=== PATIENT | female | born 1955 | race Caucasian/White ===

== ENCOUNTER 2018-06-02 07:11 | Inpatient (IN) | payer BC ==
[~2018-06-02] VITALS: Ht 162.6 cm; Wt 73.8 kg
[2018-06-02] VITALS (23 sets, daily range): BP systolic 100–144; BP diastolic 55–98
[2018-06-02] MEDS ORDERED: MORPHINE SULFATE 4 MG/ML SYR/VIAL IV ONE ×2 (07:30→16:45)
[2018-06-02] MEDS ORDERED: PROMETHAZINE HCL 25 MG/ML 1ML IV ONE (07:30)
[2018-06-02] MEDS ORDERED: LIDOCAINE 2%HCL (LOCAL ANESTH.) INJ 20ML MDV ONE (07:33)
[2018-06-02] MEDS ORDERED: IODIXANOL 320MG/ML 100ML BTL IV ONE (07:34)
[2018-06-02] MEDS ORDERED: ANGIOMAX 250 MG VIAL IV ONE (07:52)
[2018-06-02] MEDS ORDERED: SODIUM CHL 0.9% 50 ML ONE ×2 (07:52→08:29)
[2018-06-02] MEDS ORDERED: ATROPINE SULF 1 MG/10ml SYR ONE (07:52)
[2018-06-02] MEDS ORDERED: MIDAZOLAM HCL 1MG/1ML-2 ML VIAL ONE (07:52)
[2018-06-02] MEDS ORDERED: DOPamine 1600MCG/ML D5W 0 ML IV ONE (07:52)
[2018-06-02] MEDS ORDERED: fentaNYL CITRATE 100 MCG/2 ML VL ONE (07:52)
[2018-06-02] MEDS ORDERED: EPINEPHrine HCL 1 MG/10 ML SYRG ONE (07:52)
[2018-06-02] MEDS ORDERED: ADENOSINE 6 MG/2 ML INJ IV ONE (07:57)
[2018-06-02 08:00] LABS: Basophils # (auto) 0.1 uL; Basophils % (auto) 0.6 % (0.0-2.0); Eosinophils # (auto) 0.1 uL; Eosinophils % (auto) 1.7 % (0.0-7.0); Hematocrit 43.8 % (36.0-46.0); Hemoglobin 14.3 g/dL (12.2-16.2); Lymphocytes # (auto) 2.6 uL; Lymphocytes % (auto) 31.5 % (10.0-50.0); Mean Corpuscular Hemoglobin 29.4 pg (28.0-32.0); Mean Corpuscular Hgb Conc. 32.7 g/dL (32.0-36.0); Mean Corpuscular Volume 89.9 fL (80.0-100.0); Monocytes # (auto) 0.7 uL; Monocytes % (auto) 9.1 % (0.0-12.0); Neutrophils # (auto) 4.6 uL; Neutrophils % (auto) 57.1 % (37.0-80.0); Nucleated Red Blood Cells % 0.1 %; Platelet Count (auto) 318 10^3/uL (140-450); Red Blood Cells 4.87 10^6/uL (4.0-5.20); Red Cell Distribution Width 13.5 % (11.8-14.3); White Blood Cell 8.1 10^3/uL (4.4-10.8)
[2018-06-02 08:16] LABS: Albumin 3.7 g/dL (3.4-5.0); Calcium 8.9 mg/dL (8.5-10.1); Potassium 4.2 mmol/L (3.5-5.1)
[2018-06-02 08:21] LABS: BUN/Creatinine Ratio 20.4; Bilirubin, Total 0.2 mg/dL (0.2-1.0); Total Protein 7.4 g/dL (6.4-8.2)
[2018-06-02] MEDS ORDERED: EPTIFIBATIDE INJ (2MG/ML) 10ML VIAL IV ONE (08:25)
[2018-06-02] MEDS ORDERED: AMIODARONE HCL (50 MG/ ML) 3 ML VIAL IV ONE (08:29)
[2018-06-02] MEDS ORDERED: TICAGRELOR 90 MG TAB ONE (08:45)
[2018-06-02] MEDS ORDERED: ONDANSETRON HCL 4 MG/2 ML VIAL IV PRN (09:15)
[2018-06-02] MEDS ORDERED: HYDROcodone-ACET 5/325MG TAB PO PRN (09:15)
[2018-06-02] MEDS ORDERED: NITROGLYCERIN 0.4 MG SL TAB SL PRN ×2 (09:15)
[2018-06-02] MEDS ORDERED: MORPHINE SULFATE 4 MG/ML SYR/VIAL IV PRN (09:15)
[2018-06-02] MEDS ORDERED: ACETAMINOPHEN 500 MG TAB PO PRN (09:15)
[2018-06-02] MEDS ORDERED: CITALOPRAM HYDROBR 20 MG TAB PO SCH (10:00)
[2018-06-02] MEDS ORDERED: VENLAFAXINE HCL 37.5MG TABLET PO SCH (10:00)
[2018-06-02] MEDS: ALPRAZolam 0.5 MG TAB PO PRN ×2 (10:25→22:10)
[2018-06-02] MEDS: TOPIRAMATE 25 MG TAB PO SCH (10:25)
[2018-06-02] MEDS: PANTOPRAZOLE 40 MG TAB PO SCH (10:26)
[2018-06-02] MEDS: METOPROLOL TARTRATE 25 MG TAB PO SCH ×2 (10:26→22:00)
[2018-06-02] MEDS: ESCITALOPRAM 10MG TAB PO SCH (10:26)
[2018-06-02] MEDS ORDERED: TOPI50TA53 PO (10:47)
[2018-06-02] MEDS ORDERED: ALPR0.5T PO (10:47)
[2018-06-02] MEDS ORDERED: VENL150C2 PO (10:48)
[2018-06-02] MEDS ORDERED: ESCI10TA PO (10:48)
[2018-06-02] MEDS ORDERED: OPTISON 3ml Vial for INJ IV ONE (11:14)
[2018-06-02] MEDS: TICAGRELOR 90 MG TAB PO SCH (22:10)
[2018-06-02] MEDS: ATORVASTATIN 20 MG TAB PO SCH (22:10)
[2018-06-03] VITALS (17 sets, daily range): BP systolic 86–116; BP diastolic 50–66
[2018-06-03 03:59] LABS: Albumin 3.1 g/dL (3.4-5.0); Potassium 3.6 mmol/L (3.5-5.1)
[2018-06-03 04:05] LABS: Bilirubin, Total 0.5 mg/dL (0.2-1.0); Total Protein 6.4 g/dL (6.4-8.2)
[2018-06-03 07:14] LABS: Basophils # (auto) 0 uL; Basophils % (auto) 0.3 % (0.0-2.0); Eosinophils # (auto) 0.1 uL; Eosinophils % (auto) 0.5 % (0.0-7.0); Hematocrit 41.3 % (36.0-46.0); Hemoglobin 13.9 g/dL (12.2-16.2); Lymphocytes # (auto) 1.8 uL; Lymphocytes % (auto) 15.4 % (10.0-50.0); Mean Corpuscular Hemoglobin 30.4 pg (28.0-32.0); Mean Corpuscular Hgb Conc. 33.5 g/dL (32.0-36.0); Mean Corpuscular Volume 90.8 fL (80.0-100.0); Monocytes # (auto) 1.3 uL; Monocytes % (auto) 10.7 % (0.0-12.0); Neutrophils # (auto) 8.6 uL; Neutrophils % (auto) 73.1 % (37.0-80.0); Platelet Count (auto) 295 10^3/uL (140-450); Red Blood Cells 4.55 10^6/uL (4.0-5.20); Red Cell Distribution Width 13.7 % (11.8-14.3); White Blood Cell 11.8 10^3/uL (4.4-10.8)
[2018-06-03] MEDS: METOPROLOL TARTRATE 25 MG TAB PO SCH (09:54)
[2018-06-03] MEDS: TICAGRELOR 90 MG TAB PO SCH ×2 (09:55→21:50)
[2018-06-03] MEDS: ESCITALOPRAM 10MG TAB PO SCH (09:55)
[2018-06-03] MEDS: ASPirin 81 mg TAB PO SCH (09:55)
[2018-06-03] MEDS: VENLAFAXINE HCL 37.5mg XR cap PO SCH (09:56)
[2018-06-03] MEDS: PANTOPRAZOLE 40 MG TAB PO SCH (09:56)
[2018-06-03] MEDS: TOPIRAMATE 25 MG TAB PO SCH (09:56)
[2018-06-03] MEDS ORDERED: IPRATROPIUM BROM 0.5 MG/2.5ML INH SOL NEB PRN (12:15)
[2018-06-03] MEDS ORDERED: ALBUTEROL SULF 2.5 MG/0.5ML(0.5%) NEB SOLN NEB PRN (12:15)
[2018-06-03 13:47] LABS: INR 0.99 (0.9-1.15); Partial Thromboplastin Time 27.9 sec (23.78-33.04); Prothrombin Time 10.6 sec (9.27-12.13)
[2018-06-03] MEDS: SODIUM CHLORIDE 0.9% 1,000 ML IV SCH (14:57)
[2018-06-03 16:40] LABS: Alcohol, Urine < 3.0 mg/dL (0-5); Amphetamine Screen, Urine NEGATIVE (NEGATIVE); Barbiturate Scree,Urine NEGATIVE (NEGATIVE); Benzodiazephine Screen, Urine POSITIVE (NEGATIVE); Cannabinoid Screen, Urine NEGATIVE (NEGATIVE); Cocaine Screen, Urine NEGATIVE (NEGATIVE); Opiate Scree,Urine NEGATIVE (NEGATIVE); Phencyclidine Screen, Urine NEGATIVE (NEGATIVE)
[2018-06-03 16:49] LABS: Urine Bacteria NONE SEEN /hpf (None Seen); Urine Blood Negative /uL (Negative); Urine Specific Gravity 1.007 (1.001-1.035); Urine WBC <1 /hpf (0 - 5)
[2018-06-03] MEDS: DOCUSATE SOD 100 MG CAP PO SCH (21:50)
[2018-06-03] MEDS: CARVEDILOL 3.125 MG TAB PO SCH (21:51)
[2018-06-03] MEDS: ATORVASTATIN 20 MG TAB PO SCH (21:51)
[2018-06-04 05:21] VITALS: BP 90/50
[2018-06-04 06:46] LABS: BUN/Creatinine Ratio 16.8; Calcium 7.8 mg/dL (8.5-10.1); Potassium 3.8 mmol/L (3.5-5.1)
[2018-06-04] MEDS: SODIUM CHLORIDE 0.9% 1,000 ML IV SCH (06:52)
[2018-06-04 08:53] VITALS: BP 85/43
[2018-06-04] MEDS: ASPirin 81 mg TAB PO SCH (09:43)
[2018-06-04] MEDS: TICAGRELOR 90 MG TAB PO SCH (09:43)
[2018-06-04] MEDS: ESCITALOPRAM 10MG TAB PO SCH (09:43)
[2018-06-04] MEDS: DOCUSATE SOD 100 MG CAP PO SCH (09:44)
[2018-06-04] MEDS: VENLAFAXINE HCL 37.5mg XR cap PO SCH (09:46)
[2018-06-04] MEDS: PANTOPRAZOLE 40 MG TAB PO SCH (09:47)
[2018-06-04] MEDS: TOPIRAMATE 25 MG TAB PO SCH (09:47)
[2018-06-04] MEDS: CARVEDILOL 3.125 MG TAB PO SCH ×2 (09:52→11:11)
[2018-06-04] MEDS ORDERED: POTASSIUM CHL 10 Meq TABLET PO SCH (10:00)
[2018-06-04] MEDS ORDERED: PANT40T PO (10:48)
[2018-06-04] MEDS ORDERED: CAR3125T PO (10:48)
[2018-06-04] MEDS ORDERED: ATOR20TA50 PO (10:48)
[2018-06-04] MEDS ORDERED: TICA90TA PO (10:48)
[2018-06-04] MEDS ORDERED: ASPI81CH43 PO (10:48)
[2018-06-04] MEDS: ALPRAZolam 0.5 MG TAB PO PRN (11:09)
[2018-06-04 12:54] VITALS: BP 106/46
[2018-06-04 13:00] VITALS: BP 106/46
== END 2018-06-04 16:34 | disposition home or self-care (01) | DRG 247 ==
LOC: EDBD 07:11 → ER 07:11 → CATH 07:12 → ICU WEST 07:13 → TELE-EAST 06-03 16:49
PROVIDERS: ADMIT Specialist; ATTEND Internal Medicine
PROC: 027034Z Dilation of Coronary Artery, One Artery with Drug-eluting Intraluminal Device, Percutaneous Approach (ICD-10-PCS; principal; 2018-06-02)
PROC: 02C03ZZ Extirpation of Matter from Coronary Artery, One Artery, Percutaneous Approach (ICD-10-PCS; 2018-06-02)
PROC: 4A023N7 Measurement of Cardiac Sampling and Pressure, Left Heart, Percutaneous Approach (ICD-10-PCS; 2018-06-02)
PROC: B2111ZZ Fluoroscopy of Multiple Coronary Arteries using Low Osmolar Contrast (ICD-10-PCS; 2018-06-02)
PROC: B2151ZZ Fluoroscopy of Left Heart using Low Osmolar Contrast (ICD-10-PCS; 2018-06-02)
PROC: 3E073PZ Introduction of Platelet Inhibitor into Coronary Artery, Percutaneous Approach (ICD-10-PCS; 2018-06-02)
PROC: B41F1ZZ Fluoroscopy of Right Lower Extremity Arteries using Low Osmolar Contrast (ICD-10-PCS; 2018-06-02)
DX: I21.09 ST elevation (STEMI) myocardial infarction involving other coronary artery of anterior wall (principal); J98.11 Atelectasis; F32.9 Major depressive disorder, single episode, unspecified; F41.9 Anxiety disorder, unspecified; F17.200 Nicotine dependence, unspecified, uncomplicated; I10 Essential (primary) hypertension; I25.10 Atherosclerotic heart disease of native coronary artery without angina pectoris; I25.82 Chronic total occlusion of coronary artery; I77.1 Stricture of artery; K44.9 Diaphragmatic hernia without obstruction or gangrene; Z79.82 Long term (current) use of aspirin; Z82.49 Family history of ischemic heart disease and other diseases of the circulatory system; Z88.1 Allergy status to other antibiotic agents; Z88.8 Allergy status to other drugs, medicaments and biological substances; Z79.899 Other long term (current) drug therapy
CPT/HCPCS: 36415; 71045; 80048; 80053; 80061; 80307; 81001; 83036; 84484; 85025; 85379; 85610; 85730; 86850; 86900; 86901; 87081; 93005; 93306; 94761; 96361; 96374; 99152; A6257; C1874; G0378; J0153; J2250; J2405; Q9956; Q9967

== ENCOUNTER → 2018-08-14 | Outpatient (CLI) | payer BC ==
[~2018-08-14] MED LIST: ALPR0.5T PO; ASPI81CH43 PO; ATOR20TA50 PO; CAR3125T PO; ESCI10TA PO; PANT40T PO; TICA90TA PO; TOPI50TA53 PO; VENL150C2 PO
== END | disposition home or self-care (01) ==
LOC: Rad HDHVI 14:53
PROVIDERS: ATTEND Internal Medicine Cardiovascular Disease
DX: I25.118 Atherosclerotic heart disease of native coronary artery with other forms of angina pectoris (principal); E78.2 Mixed hyperlipidemia; Z95.820 Peripheral vascular angioplasty status with implants and grafts
CPT/HCPCS: 93306

== ENCOUNTER → 2018-08-17 | Outpatient (CLI) | payer BC ==
[~2018-08-17] VITALS: Ht 162.6 cm; Wt 67.6 kg
[~2018-08-17] MED LIST changes: +ADENOSINE 90 MG/30 ML INJ IV ONE
== END | disposition home or self-care (01) ==
LOC: Rad HDHVI 14:19
PROVIDERS: ATTEND Internal Medicine Cardiovascular Disease
DX: I21.09 ST elevation (STEMI) myocardial infarction involving other coronary artery of anterior wall (principal); I34.0 Nonrheumatic mitral (valve) insufficiency; E78.00 Pure hypercholesterolemia, unspecified
CPT/HCPCS: 78452; 93017; 96374; A9500

== ENCOUNTER 2018-09-27 10:43 | Emergency (ER) | payer BC ==
[~2018-09-27] VITALS: Ht 162.6 cm; Wt 63.5 kg
[~2018-09-27 10:43] MED LIST changes: -ADENOSINE 90 MG/30 ML INJ IV ONE
[2018-09-27 11:31] LABS: Urine Bacteria MOD /hpf (None Seen); Urine Blood Negative /uL (Negative); Urine Specific Gravity 1.004 (1.001-1.035); Urine WBC 119 /hpf (0 - 5)
[2018-09-27] MEDS ORDERED: LORazepam 0.5 MG TAB PO ONE (11:45)
[2018-09-27 12:22] LABS: Basophils # (auto) 0 uL; Basophils % (auto) 0.8 % (0.0-2.0); Eosinophils # (auto) 0.2 uL; Eosinophils % (auto) 3.3 % (0.0-7.0); Hematocrit 39.7 % (36.0-46.0); Hemoglobin 13.2 g/dL (12.2-16.2); Lymphocytes # (auto) 1.9 uL; Lymphocytes % (auto) 30.1 % (10.0-50.0); Mean Corpuscular Hemoglobin 30.3 pg (28.0-32.0); Mean Corpuscular Hgb Conc. 33.2 g/dL (32.0-36.0); Mean Corpuscular Volume 91.1 fL (80.0-100.0); Monocytes # (auto) 0.7 uL; Monocytes % (auto) 10.9 % (0.0-12.0); Neutrophils # (auto) 3.5 uL; Neutrophils % (auto) 54.9 % (37.0-80.0); Platelet Count (auto) 301 10^3/uL (140-450); Red Blood Cells 4.36 10^6/uL (4.0-5.20); Red Cell Distribution Width 14.7 % (11.8-14.3); White Blood Cell 6.4 10^3/uL (4.4-10.8)
[2018-09-27 12:35] LABS: INR 0.93 (0.9-1.15); Partial Thromboplastin Time 27.5 sec (23.78-33.04)
[2018-09-27 12:36] LABS: Alanine Aminotransferase 50 U/L (13-56); Albumin 3.5 g/dL (3.4-5.0); Anion Gap 7 (5-15); Blood Urea Nitrogen 11 mg/dL (7-18); Calcium 8.7 mg/dL (8.5-10.1); Carbon Dioxide 25 mmol/L (21-32); Chloride 111 mmol/L (98-107); Glucose 103 mg/dL (74-106); Sodium 143 mmol/L (136-145)
[2018-09-27 12:41] LABS: Alkaline Phosphatase 85 U/L (45-117); Aspartate Aminotransferase 37 U/L (15-37); BUN/Creatinine Ratio 14.5; Bilirubin, Total 0.3 mg/dL (0.2-1.0); GFR African American 99 mL/min; GFR Non-African American 82 mL/min; Total Protein 7.2 g/dL (6.4-8.2)
[2018-09-27 14:13] VITALS: BP 124/77
== END 2018-09-27 14:14 | disposition home or self-care (01) ==
LOC: ER 10:51
DX: F41.9 Anxiety disorder, unspecified (principal); N39.0 Urinary tract infection, site not specified; F32.9 Major depressive disorder, single episode, unspecified; Z88.1 Allergy status to other antibiotic agents; Z98.51 Tubal ligation status; Z90.49 Acquired absence of other specified parts of digestive tract
CPT/HCPCS: 36415; 71045; 80053; 81001; 83880; 84443; 84484; 85025; 85610; 85730; 93005

== ENCOUNTER → 2019-05-07 | Outpatient (CLI) | payer BC | END | disposition home or self-care (01) | LOC: Rad HDHVI 15:56 | PROVIDERS: ATTEND Internal Medicine Cardiovascular Disease | DX: I25.118 Atherosclerotic heart disease of native coronary artery with other forms of angina pectoris (principal); I11.0 Hypertensive heart disease with heart failure; I50.23 Acute on chronic systolic (congestive) heart failure; Z95.820 Peripheral vascular angioplasty status with implants and grafts | CPT/HCPCS: 93306 ==

== ENCOUNTER → 2019-06-28 | Outpatient (CLI) | payer BC ==
[~2019-06-28] VITALS: Ht 162.6 cm; Wt 70.8 kg
== END | disposition home or self-care (01) ==
LOC: Rad HDHVI 08:20
PROVIDERS: ATTEND Internal Medicine Cardiovascular Disease
DX: I10 Essential (primary) hypertension (principal); R51 Headache; R00.0 Tachycardia, unspecified; R53.83 Other fatigue; I25.2 Old myocardial infarction; E78.00 Pure hypercholesterolemia, unspecified; Z82.49 Family history of ischemic heart disease and other diseases of the circulatory system; Z79.899 Other long term (current) drug therapy; Z79.82 Long term (current) use of aspirin
CPT/HCPCS: 78452; 93017; 96374; A9500

== ENCOUNTER → 2019-10-18 | Outpatient (CLI) | payer BC ==
[2019-10-18 08:24] LABS: Basophils # (auto) 0 10 ^3/uL (0-0.2); Basophils % (auto) 0.8 % (0.0-2.0); Eosinophils # (auto) 0.3 10 ^3/uL (0-0.8); Eosinophils % (auto) 5.6 % (0.0-7.0); Hematocrit 42.6 % (36.0-46.0); Hemoglobin 14.1 g/dL (12.2-16.2); Lymphocytes # (auto) 1.8 10 ^3/uL (0.4-5.4); Lymphocytes % (auto) 36.1 % (10.0-50.0); Mean Corpuscular Hgb Conc. 33.1 g/dL (32.0-36.0); Mean Corpuscular Volume 87.5 fL (80.0-100.0); Monocytes # (auto) 0.6 10 ^3/uL (0-1.3); Monocytes % (auto) 11.7 % (0.0-12.0); Neutrophils # (auto) 2.3 10 ^3/uL (1.6-8.6); Neutrophils % (auto) 45.8 % (37.0-80.0); Nucleated Red Blood Cells % 0.1 %; Platelet Count (auto) 335 10^3/uL (140-450); Red Blood Cells 4.86 10^6/uL (4.0-5.20); Red Cell Distribution Width 13.4 % (11.8-14.3); White Blood Cell 4.9 10^3/uL (4.4-10.8)
[2019-10-18 09:33] LABS: Magnesium 2.1 mg/dL (1.6-2.6)
[2019-10-18 09:40] LABS: Albumin 3.8 g/dL (3.4-5.0); BUN/Creatinine Ratio 19.4; Bilirubin, Total 0.4 mg/dL (0.2-1.0); Calcium 9.3 mg/dL (8.5-10.1); Phosphorus 3.6 mg/dL (2.5-4.90); Total Protein 7.2 g/dL (6.4-8.2)
== END | disposition home or self-care (01) ==
LOC: LAB 07:57
PROVIDERS: ATTEND Internal Medicine Nephrology
DX: I50.9 Heart failure, unspecified (principal); I25.10 Atherosclerotic heart disease of native coronary artery without angina pectoris; M85.80 Other specified disorders of bone density and structure, unspecified site
CPT/HCPCS: 36415; 80053; 80061; 82306; 83735; 84100; 84439; 84443; 85025

== ENCOUNTER 2019-11-11 08:36 | Emergency (ER) | payer BC ==
[~2019-11-11] VITALS: Ht 162.6 cm; Wt 63.5 kg
[2019-11-11 08:50] VITALS: BP 135/62
[2019-11-11] MEDS ORDERED: KETOROLAC TROMETH 60MG/2ML VIAL IM ONE (09:30)
[2019-11-11 09:48] LABS: Urine Bacteria NONE SEEN /hpf (None Seen); Urine Blood Negative /uL (Negative); Urine Mucus FEW (None Seen); Urine Specific Gravity 1.025 (1.001-1.035); Urine WBC 2 /hpf (0 - 5)
== END 2019-11-11 10:06 | disposition home or self-care (01) ==
LOC: ER 08:36
DX: N20.0 Calculus of kidney (principal); N28.1 Cyst of kidney, acquired; K44.9 Diaphragmatic hernia without obstruction or gangrene; Z88.1 Allergy status to other antibiotic agents; Z79.899 Other long term (current) drug therapy
CPT/HCPCS: 81001; 96372; 99283; J1885

== ENCOUNTER → 2021-02-01 | Outpatient (CLI) | payer BC, MEDICARE ==
[~2021-02-01] VITALS: Ht 162.6 cm; Wt 71.7 kg
== END | disposition home or self-care (01) ==
LOC: Rad HDHVI 13:31
PROVIDERS: ATTEND Internal Medicine Cardiovascular Disease
DX: I25.10 Atherosclerotic heart disease of native coronary artery without angina pectoris (principal); I10 Essential (primary) hypertension; E78.5 Hyperlipidemia, unspecified; I25.2 Old myocardial infarction; Z82.49 Family history of ischemic heart disease and other diseases of the circulatory system
CPT/HCPCS: 78452; 93017; 96374; A9500

== ENCOUNTER 2021-05-03 09:19 | Day surgery (SDC) | payer MEDICARE ==
[2021-04-30 10:02] LABS: Basophils # (auto) 0 10 ^3/uL (0-0.2); Basophils % (auto) 0.6 % (0.0-2.0); Eosinophils # (auto) 0.2 10 ^3/uL (0-0.8); Eosinophils % (auto) 3.9 % (0.0-7.0); Hemoglobin 13.5 g/dL (12.2-16.2); Lymphocytes # (auto) 1.7 10 ^3/uL (0.4-5.4); Lymphocytes % (auto) 38.4 % (10.0-50.0); Mean Corpuscular Hemoglobin 29.2 pg (28.0-32.0); Mean Corpuscular Hgb Conc. 32.9 g/dL (32.0-36.0); Mean Corpuscular Volume 88.8 fL (80.0-100.0); Monocytes # (auto) 0.5 10 ^3/uL (0-1.3); Monocytes % (auto) 12.1 % (0.0-12.0); Nucleated Red Blood Cells % 0.1 %; Red Blood Cells 4.61 10^6/uL (4.0-5.20); White Blood Cell 4.5 10^3/uL (4.4-10.8)
[2021-04-30 10:27] LABS: Albumin 3.7 g/dL (3.4-5.0); Calcium 9.1 mg/dL (8.5-10.1); Potassium 4.4 mmol/L (3.5-5.1)
[2021-04-30 10:30] LABS: BUN/Creatinine Ratio 20.7; Bilirubin, Total 0.3 mg/dL (0.2-1.0)
[~2021-05-03] VITALS: Ht 162.6 cm; Wt 71.7 kg
[~2021-05-03 09:19] MED LIST changes: -ALPR0.5T PO; +CLOP75TA28 PO; -ESCI10TA PO; -TOPI50TA53 PO; +TURM1TAB PO; -VENL150C2 PO; +VENL150C3 PO
[2021-05-03] MEDS ORDERED: LIDOCAINE VISCOUS 2% 15ML UD ONE (11:02)
[2021-05-03] MEDS ORDERED: diphenhdrAMINE HCL 50 MG/1 ML VL ONE (11:03)
[2021-05-03] MEDS: MIDAZOLAM HCL 5 MG/ML-1ML VIAL ONE ×5 (11:59→12:24)
[2021-05-03] MEDS: fentaNYL CITRATE 100 MCG/2 ML VL ONE ×5 (11:59→12:24)
[2021-05-03 13:10] VITALS: BP 126/73
== END 2021-05-03 13:15 | disposition home or self-care (01) ==
LOC: GI 09:19
PROVIDERS: ATTEND Internal Medicine Gastroenterology
DX: R10.30 Lower abdominal pain, unspecified (principal); K31.89 Other diseases of stomach and duodenum; K57.30 Diverticulosis of large intestine without perforation or abscess without bleeding; K63.89 Other specified diseases of intestine; Z98.890 Other specified postprocedural states; Z20.822 Contact with and (suspected) exposure to COVID-19; Z88.1 Allergy status to other antibiotic agents; Z88.8 Allergy status to other drugs, medicaments and biological substances
CPT/HCPCS: 36415; 43239; 45378; 80053; 85025; J1200; J2250; J3010; J7030; U0003; 99153; G0500

== ENCOUNTER → 2021-12-06 | Outpatient (CLI) | payer MEDICARE ==
[2021-12-06 16:27] LABS: Basophils # (auto) 0.1 10 ^3/uL (0-0.2); Basophils % (auto) 1.6 % (0.0-2.0); Eosinophils # (auto) 0.2 10 ^3/uL (0-0.8); Eosinophils % (auto) 3.6 % (0.0-7.0); Hematocrit 44.1 % (36.0-46.0); Hemoglobin 14.8 g/dL (12.2-16.2); Lymphocytes # (auto) 2.3 10 ^3/uL (0.4-5.4); Mean Corpuscular Hemoglobin 29.8 pg (28.0-32.0); Mean Corpuscular Hgb Conc. 33.7 g/dL (32.0-36.0); Mean Corpuscular Volume 88.4 fL (80.0-100.0); Monocytes # (auto) 0.8 10 ^3/uL (0-1.3); Monocytes % (auto) 12.6 % (0.0-12.0); Neutrophils # (auto) 2.9 10 ^3/uL (1.6-8.6); Neutrophils % (auto) 46.2 % (37.0-80.0); Red Blood Cells 4.98 10^6/uL (4.0-5.20); Red Cell Distribution Width 14.1 % (11.8-14.3); White Blood Cell 6.3 10^3/uL (4.4-10.8)
[2021-12-06 16:42] LABS: Albumin 3.7 g/dL (3.4-5.0); Calcium 9.5 mg/dL (8.5-10.1); Potassium 4.5 mmol/L (3.5-5.1)
[2021-12-06 16:46] LABS: BUN/Creatinine Ratio 17.2; Bilirubin, Total 0.4 mg/dL (0.2-1.0); Total Protein 7.6 g/dL (6.4-8.2)
== END | disposition home or self-care (01) ==
LOC: LAB 16:02
PROVIDERS: ATTEND Internal Medicine Nephrology
DX: I10 Essential (primary) hypertension (principal); Z79.899 Other long term (current) drug therapy
CPT/HCPCS: 36415; 80053; 83036; 85025

== ENCOUNTER → 2022-09-26 | Outpatient (CLI) | payer MEDICARE ==
[2022-09-26 10:28] LABS: Basophils # (auto) 0 10 ^3/uL (0-0.2); Basophils % (auto) 0.7 % (0.0-2.0); Eosinophils # (auto) 0.1 10 ^3/uL (0-0.8); Eosinophils % (auto) 3.3 % (0.0-7.0); Hemoglobin 15.2 g/dL (12.2-16.2); Lymphocytes # (auto) 1.7 10 ^3/uL (0.4-5.4); Lymphocytes % (auto) 39.1 % (10.0-50.0); Mean Corpuscular Hemoglobin 30.2 pg (28.0-32.0); Mean Corpuscular Hgb Conc. 33.7 g/dL (32.0-36.0); Mean Corpuscular Volume 89.4 fL (80.0-100.0); Monocytes # (auto) 0.5 10 ^3/uL (0-1.3); Monocytes % (auto) 11.8 % (0.0-12.0); Neutrophils % (auto) 45.1 % (37.0-80.0); Nucleated Red Blood Cells % 0.3 %; Red Blood Cells 5.04 10^6/uL (4.0-5.20); Red Cell Distribution Width 14.2 % (11.8-14.3); White Blood Cell 4.4 10^3/uL (4.4-10.8)
[2022-09-26 11:21] LABS: Albumin 3.7 g/dL (3.4-5.0); Calcium 8.8 mg/dL (8.5-10.1); Potassium 4.4 mmol/L (3.5-5.1)
[2022-09-26 11:28] LABS: BUN/Creatinine Ratio 15.7; Bilirubin, Total 0.4 mg/dL (0.2-1.0)
[2022-09-26 11:50] LABS: Micro Albumin 8.98 mg/L (0-30.0)
== END | disposition home or self-care (01) ==
LOC: LAB 10:11
PROVIDERS: ATTEND Nurse Practitioner Family
DX: R73.03 Prediabetes (principal); F41.9 Anxiety disorder, unspecified; I10 Essential (primary) hypertension
CPT/HCPCS: 36415; 80053; 80061; 82043; 82570; 83036; 84439; 84443; 85025

== ENCOUNTER → 2022-11-18 | Outpatient (CLI) | payer OTHER ==
[~2022-11-18] VITALS: Ht 162.6 cm; Wt 71.7 kg
== END | disposition home or self-care (01) ==
LOC: Rad HDHVI 08:10
PROVIDERS: ATTEND Internal Medicine Cardiovascular Disease
DX: I25.10 Atherosclerotic heart disease of native coronary artery without angina pectoris (principal); I25.2 Old myocardial infarction; R07.9 Chest pain, unspecified; Z82.49 Family history of ischemic heart disease and other diseases of the circulatory system
CPT/HCPCS: 78452; 93017; 96374; A9500

== ENCOUNTER → 2022-12-09 | Outpatient (CLI) | payer OTHER ==
[2022-12-09 14:48] LABS: Urine Bacteria FEW /hpf (None Seen); Urine Blood 2+ /uL (Negative); Urine Specific Gravity 1.016 (1.001-1.035); Urine WBC 1142 /hpf (0 - 5); Urine WBC Clumps PRESENT /hpf (None Seen)
== END | disposition home or self-care (01) ==
LOC: LAB 13:51
PROVIDERS: ATTEND Nurse Practitioner Family
DX: N39.0 Urinary tract infection, site not specified (principal)
CPT/HCPCS: 81001; 87086

== ENCOUNTER → 2023-09-12 | Outpatient (CLI) | payer OTHER ==
[2023-09-12 10:46] LABS: Basophils # (auto) 0 10 ^3/uL (0-0.2); Basophils % (auto) 0.7 % (0.0-2.0); Eosinophils # (auto) 0.1 10 ^3/uL (0-0.8); Eosinophils % (auto) 2.2 % (0.0-7.0); Hematocrit 43.4 % (36.0-46.0); Hemoglobin 14.4 g/dL (12.2-16.2); Lymphocytes # (auto) 1.8 10 ^3/uL (0.4-5.4); Lymphocytes % (auto) 36.3 % (10.0-50.0); Mean Corpuscular Hemoglobin 29.9 pg (28.0-32.0); Mean Corpuscular Hgb Conc. 33.1 g/dL (32.0-36.0); Mean Corpuscular Volume 90.3 fL (80.0-100.0); Monocytes # (auto) 0.6 10 ^3/uL (0-1.3); Monocytes % (auto) 11.2 % (0.0-12.0); Neutrophils # (auto) 2.5 10 ^3/uL (1.6-8.6); Neutrophils % (auto) 49.6 % (37.0-80.0); Nucleated Red Blood Cells % 0.1 %; Red Blood Cells 4.81 10^6/uL (4.0-5.20); Red Cell Distribution Width 13.7 % (11.8-14.3)
[2023-09-12 11:36] LABS: Alanine Aminotransferase 23 U/L (7-40); Albumin 4.6 g/dL (3.2-4.8); Alkaline Phosphatase 72 U/L (46-116); Anion Gap 7 (5-15); Aspartate Aminotransferase 23 U/L (13-40); BUN/Creatinine Ratio 12.6 (10.0-20.0); Bilirubin, Total 0.6 mg/dL (0.2-1.0); Blood Urea Nitrogen 12 mg/dL (9-23); Carbon Dioxide 29 mmol/L (20-30); Chloride 107 mmol/L (98-107); Cholesterol 213 mg/dL (< 200); Glucose 100 mg/dL (74-106); HDL Cholesterol 65 mg/dL (40-59); LDL Cholesterol 128 mg/dL (< 100); Potassium 4.7 mmol/L (3.5-5.1); Sodium 143 mmol/L (136-145); Total Protein 7.2 g/dL (5.7-8.2); Triglycerides 154 mg/dL (< 150)
== END | disposition home or self-care (01) ==
LOC: LAB 10:32
PROVIDERS: ATTEND Nurse Practitioner Family
DX: I50.32 Chronic diastolic (congestive) heart failure (principal); E78.5 Hyperlipidemia, unspecified; R73.03 Prediabetes
CPT/HCPCS: 36415; 80053; 80061; 82043; 83036; 84439; 84443; 85025

== ENCOUNTER → 2024-03-01 | Outpatient (CLI) | payer OTHER ==
[~2024-03-01] VITALS: Ht 162.6 cm; Wt 72.6 kg
[~2024-03-01] MED LIST changes: -CAR3125T PO; +CARV-214 PO
== END | disposition home or self-care (01) ==
LOC: Rad HDHVI 09:09
PROVIDERS: ATTEND Internal Medicine Cardiovascular Disease
DX: I13.0 Hypertensive heart and chronic kidney disease with heart failure and stage 1 through stage 4 chronic kidney disease, or unspecified chronic kidney disease (principal); N18.9 Chronic kidney disease, unspecified; I50.9 Heart failure, unspecified; I25.2 Old myocardial infarction; R73.03 Prediabetes; E78.5 Hyperlipidemia, unspecified; R00.0 Tachycardia, unspecified; I25.118 Atherosclerotic heart disease of native coronary artery with other forms of angina pectoris; R07.89 Other chest pain; Z82.49 Family history of ischemic heart disease and other diseases of the circulatory system
CPT/HCPCS: 78452; 93017; 96374; A9500

== ENCOUNTER 2024-06-06 12:35 | Inpatient (IN) | payer OTHER ==
[~2024-06-06] VITALS: Ht 162.6 cm; Wt 74.7 kg
[2024-06-06 13:21] LABS: Basophils # (auto) 0 10 ^3/uL (0-0.2); Basophils % (auto) 0.7 % (0.0-2.0); Eosinophils # (auto) 0.2 10 ^3/uL (0-0.8); Eosinophils % (auto) 3.5 % (0.0-7.0); Hematocrit 45.3 % (36.0-46.0); Hemoglobin 15.1 g/dL (12.2-16.2); Lymphocytes # (auto) 2.3 10 ^3/uL (0.4-5.4); Lymphocytes % (auto) 40.6 % (10.0-50.0); Mean Corpuscular Hemoglobin 29.6 pg (28.0-32.0); Mean Corpuscular Hgb Conc. 33.2 g/dL (32.0-36.0); Mean Corpuscular Volume 89.1 fL (80.0-100.0); Monocytes # (auto) 0.9 10 ^3/uL (0-1.3); Monocytes % (auto) 15.1 % (0.0-12.0); Neutrophils # (auto) 2.3 10 ^3/uL (1.6-8.6); Neutrophils % (auto) 40.1 % (37.0-80.0); Platelet Count (auto) 282 10^3/uL (140-450); Red Blood Cells 5.08 10^6/uL (4.0-5.20); Red Cell Distribution Width 14.9 % (11.8-14.3); White Blood Cell 5.6 10^3/uL (4.4-10.8)
[2024-06-06 13:40] LABS: Chloride 110 mmol/L (98-107); Potassium 4.1 mmol/L (3.5-5.1); Sodium 141 mmol/L (136-145)
[2024-06-06 13:41] LABS: Anion Gap 9 (5-15); Carbon Dioxide 22 mmol/L (20-31)
[2024-06-06 13:42] LABS: Calcium 9.7 mg/dL (8.7-10.4)
[2024-06-06 13:46] LABS: Glucose 115 mg/dL (74-106)
[2024-06-06 13:47] LABS: BUN/Creatinine Ratio 15.9 (10.0-20.0); Blood Urea Nitrogen 14 mg/dL (9-23)
--- NOTE | 2024-06-06 13:56 | DVH ---
EXAM: CT HEAD WITHOUT CONTRAST INDICATION: dizziness TECHNIQUE: CT of the head without intravenous contrast. Radiation Dose : 1. Head: CT Dose: CTDI volume is 55.7 mGy. Dose-length product is 986.32 mGy*cm The dose indicators for CT are the volume Computed Tomography (CT) Dose Index (CTDIvol) and the Dose Length Product (DLP), and are measured in units of mGy and mGy-cm, respectively. These indicators are not patient dose, but values generated from the CT scanner acquisition factors. The report includes radiation exposure data for exposures received during this examination. COMPARISON: None FINDINGS: There is no evidence of acute intracranial hemorrhage, extra-axial collection, mass effect, midline s hift, herniation or hydrocephalus. The ventricles, sulci and cisterns are age appropriate. The guerrero-white differentiation is intact. Patchy periventricular and subcortical white matter hypoattenuation is nonspecific but may be related to small vessel ischemic disease. The visualized paranasal sinuses and mastoid air cells are clear. The surrounding soft tissues and osseous structures are unremarkable. IMPRESSION: 1. No acute intracranial abnormality. 2. Chronic microvascular ischemic changes. Radiation optimization: All CT scans at this facility use at least one of these dose optimization jatin hniques: automated exposure control mA and/or kV adjustment per patient size (includes targeted exam s where dose is matched to clinical indication) or iterative reconstruction.
--- NOTE | 2024-06-06 13:57 | DVH ---
CHEST RADIOGRAPH Indication:CP Technique: Single frontal view of the chest was obtained COMPARISON: None FINDINGS: Lines and Tubes: None Lungs: Left basilar atelectasis/ scarring. Pleura: No effusion. No pneumothorax. Cardiomediastinal contours: Unremarkable Bones: Unremarkable Elevation of the left hemidiaphragm may reflect eventration. IMPRESSION: 1. No acute disease. 2. Elevation of the left hemidiaphragm may reflect eventration.
[2024-06-06 14:15] VITALS: PULSE 94; RESP 15; O2SAT 94
[2024-06-06] MEDS: MECLIZINE HCL 25 MG TAB PO ONE (14:33)
--- NOTE | 2024-06-06 14:59 | ED.PDOC ---
History of Present Illness HPI Comments This is a 68-year-old female who comes in with chief complaint of dizziness x2 days. The patient was also complaining of some nausea. She denies any recent trauma. There has been no fever or chills. The patient also states that she is having some palpitations. She went to the urgent care because she was having 1/10 chest pain and was sent to the emergency department's for evaluation. She denies any shortness a breath. Chief Complaint: Dizziness Time Seen by MD: 12:45 Primary Care Provider: ASIF Reviewed Notes: Nurses Notes, Medications, Allergies (Allergies listed above) Allergies: Coded Allergies: Amoxicillin (Verified Allergy, Unknown, 06/22/16) Azithromycin (Verified Allergy, Unknown, 06/22/16) Home Meds Active Scripts Ticagrelor Base (BRILINTA) 90 Mg Tab, 90 MG PO BID, #60 TAB Prov:MG NEELY MD 06/04/18 Atorvastatin Calcium (ATORVASTATIN CALCIUM) 20 Mg Tab, 40 MG PO HS, #90 TAB Prov:MG NEEYL MD 06/04/18 Carvedilol (COREG) 3.125 Mg Tab, 3.125 MG PO Q12HR, #120 TAB Prov:MG NEELY MD 06/04/18 Pantoprazole Sodium Sesquihydr (Pantoprazole Sodium) 40 Mg Tab, 40 MG PO DAILY, #30 TAB Prov:MG NEELY MD 06/04/18 Aspirin (Asa) 81 Mg Ch, 81 MG PO DAILY, #90 Prov:MG NEELY MD 06/04/18 Reported Medications Clopidogrel Bisulfate (Plavix) 75 Mg Tab, 75 MG PO, TAB 04/30/21 Curcuma [place]a (Turmeric) Extra (Turmeric) 500 Mg Tab, 500 MG PO, TAB 04/30/21 Venlafaxine Hydrochloride (Effexor Xr) 150 Mg Cap, 1 CAP PO DAILY, #30 CAP 1 Refill 06/02/18 Information Source: Patient Mode of Arrival: Ambulatory Severity: Moderate Timing: Days (Started two days ago) Duration: Since onset Prehospital treatment: None Associated signs and symptoms Associated palpitations with nausea and chest pain Past Medical History PAST MEDICAL HISTORY: Anxiety, Depression, High Lipids, HTN, DE Surgical History: BTL, Cholecystectomy, , PTCA WELL DRILLER History: No Pertinent WELL DRILLER History Family History Family History: Family hx of heart konrad Social History Smoker: Secondhand Alcohol: Occasionally Drugs: Denies Drug Use Lives In: Home Constitutional: denies: chills, diaphoresis, fatigue, fever, malaise, sweats, weakness, others EENTM: denies: blurred vision, double vision, ear bleeding, ear discharge, ear drainage, ear pain, ear ringing, eye pain, eye redness, hearing loss, mouth pain, mouth swelling, nasal discharge, nose bleeding, nose congestion, nose pain, photophobia, tearing, throat pain, throat swelling, voice changes, others Respiratory: denies: cough, hemoptysis, orthopnea, SOB at rest, shortness of breath, SOB with excertion, stridor, wheezing, others Cardiovascular: reports: chest pain, palpitations; denies: dizzy spells, diaphoresis, Dyspnea on exertion, edema, irregular heart beat, left arm pain, lightheadedness, PND, syncope, others Gastrointestinal: reports: nausea; denies: abdomen distended, abdominal pain, blood streaked bowels, constipated, diarrhea, dysphagia, difficulty swallowing, hematemesis, melena, poor appetite, poor fluid intake, rectal bleeding, rectal pain, vomiting, others Genitourinary: denies: abnormal vagina bleeding, burning, dyspareunia, dysuria, flank pain, frequency, hematuria, incontinence, pain, , vagina discharge, urgency, others Neurological: reports: dizziness, headache; denies: fainting, left sided numbness, left sided weakness, numbness, paresthesia, pre-existing deficit, right sided numbness, right sided weakness, seizure, speech problems, tingling, tremors, weakness, others Musculoskeletal: denies: back pain, gout, joint pain, joint swelling, muscle pain, muscle stiffness, neck pain, others Integumetry: denies: bruises, change in color, change in hair/nails, dryness, laceration, lesions, lumps, rash, wounds, others Allergic/Immunocompromised: denies: Difficulty Healing, Frequent Infections, Hives, Itching, others Hematologic/Lymphatic: denies: anemia, blood clots, easy bleeding, easy bruising, swollen glands, others Endocrine: denies: excessive hunger, excessive sweating, excessive thirst, excessive urination, flushing, intolerance to cold, intolerance to heat, unexplained weight gain, unexplained weight loss, others Psychiatric: denies: anxiety, bipolar disorder, depression, hopeless, panic disorder, schizophrenia, sleepless, suicidal, others Physical Exam General Appearance: Moderate Distress HEENT: Normal ENT Inspection, Pharynx Normal, TMs Normal Neck: Full Range of Motion, Non-Tender, Normal, Normal Inspection Respiratory: Chest Non-Tender, Lungs Clear, No Accessory Muscle Use, No Respiratory Distress, Normal Breath Sounds Cardiovascular: No Edema, No JVD, No Murmur, No Gallop, Tachycardia Breast Exam: Deferred Gastrointestinal: No Organomegaly, Non Tender, No Pulsatile Mass, Normal Bowel Sounds, Soft Genitalia: Deferred Pelvic: Deferred Rectal: Deferred Extremities: No calf tenderness, Normal capillary refill, Normal inspection, Normal range of motion, Non-tender, No pedal edema Musculoskeletal : Apperance: Normal Neurologic: Alert, 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 Was a procedure done?: No EKG EKG : Pulse Rate (adult): 102 [place]: Normal Cardiac Rhythm: ST Block: None Differential Dx Considerations may include: Generalized weakness, palpitations, DE, ACS X-Ray, Labs, Meds, VS Vital Signs Date Time Temp Pulse Resp B/P (MAP) Pulse Ox O2 Delivery O2 Flow Rate FiO2 06/06/24 16:31 84 18 106/45 (65) 94 06/06/24 14:59 102 06/06/24 14:15 98.3 94 15 106/49 (68) 94 98.3 06/06/24 14:15 94 15 94 Room Air* 0 21 06/06/24 12:52 98.3 89 18 108/56 (73) 93 06/06/24 12:42 83 Lab Test 06/06/24 15:46 06/06/24 14:45 06/06/24 13:50 06/06/24 12:49 Range/Units Troponin I High Sensitivity < 3 L < 3 L < 3 L </=34 ng/L Urine Color Light-yellow Yellow Urine Clarity Hazy H Clear Urine pH 7.0 5.0-9.0 Urine Specific [place] 1.023 1.001-1.035 Urine Protein Negative Negative Urine Ketones Negative Negative Urine Blood Negative Negative /uL Urine Nitrite Negative Negative Urine Bilirubin Negative Negative Urine Urobilinogen Normal Negative mg/dL Urine Leukocyte Esterase Negative Negative /uL Urine RBC <1 0 - 4 /hpf Urine WBC 1 0 - 5 /hpf Urine Squamous Epithelial Cells Few <5 /hpf Urine Amorphous Crystals Few None Seen /hpf Urine Bacteria Few H None Seen /hpf Urine Yeast (Budding) Moderate None Seen /hpf Urine Glucose Normal Normal mg/dL White Blood Count 5.6 4.4-10.8 10^3/uL Red Blood Count 5.08 4.0-5.20 10^6/uL Hemoglobin 15.1 12.2-16.2 g/dL Hematocrit 45.3 36.0-46.0 % Mean Corpuscular Volume 89.1 80.0-100.0 fL Mean Corpuscular Hemoglobin 29.6 28.0-32.0 pg Mean Corpuscular Hemoglobin Concent 33.2 32.0-36.0 g/dL Red Cell Distribution Width 14.9 H 11.8-14.3 % Platelet Count 282 140-450 10^3/uL Mean Platelet Volume 7.2 6.9-10.8 fL Neutrophils (%) (Auto) 40.1 37.0-80.0 % Lymphocytes (%) (Auto) 40.6 10.0-50.0 % Monocytes (%) (Auto) 15.1 H 0.0-12.0 % Eosinophils (%) (Auto) 3.5 0.0-7.0 % Basophils (%) (Auto) 0.7 0.0-2.0 % Neutrophils # (Auto) 2.3 1.6-8.6 10 ^3/uL Lymphocytes # (Auto) 2.3 0.4-5.4 10 ^3/uL Monocytes # (Auto) 0.9 0-1.3 10 ^3/uL Eosinophils # (Auto) 0.2 0-0.8 10 ^3/uL Basophils # (Auto) 0 0-0.2 10 ^3/uL Nucleated Red Blood Cells 0.0 % Sodium Level 141 136-145 mmol/L Potassium Level 4.1 3.5-5.1 mmol/L Chloride Level 110 H 98-107 mmol/L Carbon Dioxide Level 22 20-31 mmol/L Anion Gap 9 5-15 Blood Urea Nitrogen 14 9-23 mg/dL Creatinine 0.88 0.550-1.02 mg/dL Glomerular Filtration Rate Calc 72 >90 mL/min BUN/Creatinine Ratio 15.9 10.0-20.0 Serum Glucose 115 H 74-106 mg/dL Calcium Level 9.7 8.7-10.4 mg/dL Current Medications Medications (Trade) Dose Ordered Sig/Yelena Route Start Time Stop Time Status Last Admin Meclizine HCl (Antivert Tablet) 25 mg ONCE ONCE PO 06/06/24 14:00 06/06/24 14:01 DC 06/06/24 14:33 The patient was given meclizine 25 mg by mouth The patient's CBC and chemistry panel is within normal limits The troponin level x2 is negative At this time, the patient continues to be somewhat symptomatic. The CT scan of the head shows: IMPRESSION: 1. No acute intracranial abnormality. 2. Chronic microvascular ischemic changes. The chest x-ray shows no sign of any abnormalities At this time, the patient continues to have the dizziness in the pain The patient was being admitted The troponin level x3 is within normal limits Images Reviewed?: Images reviewed and evaluated by me Time of 1ST Reevaluation: 14:58 Reevaluation 1ST: Unchanged Patient Education/Counseling: Diagnosis, Treatment, Prognosis Family Education/Counseling: No Family Present Departure 1 Departure Time of Disposition: 16:50 Impression: Primary Impression: Autonomic dysfunction Additional Impression: Acute chest pain Disposition: ADMITTED INPATIENT Admit to: Tele Condition: Fair Critical Care Note Critical Care Time?: Yes (35 min-critical care time only) Stability Stability form required: Yes Unstable for transfer: Telemetry monitoring (Telemetry monitoring required), ED Physician Assesment (Clinical assesment) Heart Score Heart Score: Heart Score Response (Comments) Value History Moderate Suspicious 1 EKG Repolarization Disturb 1 Age >65 2 Risk Factors >3 or Hx ASHD 2 Troponin Normal limit 0 Total 6 ANGIE SUTTON MD Jun 06, 2024 14:59
[2024-06-06 15:21] LABS: Urine Amorphous Crystal FEW /hpf (None Seen); Urine Bacteria FEW /hpf (None Seen); Urine Blood Negative /uL (Negative); Urine Budding Yeast MODERATE /hpf (None Seen); Urine Clarity Hazy (Clear); Urine Color Light-Yellow (Yellow); Urine Protein, UAD Negative (Negative); Urine Specific Gravity 1.023 (1.001-1.035); Urine Urobilinogen Normal (Negative); Urine WBC 1 /hpf (0 - 5)
[2024-06-06 17:01] VITALS: PULSE 83; RESP 15; O2SAT 94
[2024-06-06] MEDS ORDERED: ONDANSETRON HCL 4 MG/2 ML VIAL IV PRN (18:30)
[2024-06-06] MEDS: SODIUM CHLORIDE 0.9% 1,000 ML IV SCH (18:30)
--- NOTE | 2024-06-06 18:39 | DVHHP2 ---
History of Present Illness Reason for Visit: Dizziness History of Present Illness This 68-year-old female presents in the ED with a chief complaint of dizziness. The patient reports progressive dizziness for the past few months. The patient reports dizziness he starts when getting up. The patient reports syncope and fall a few months ago. Orthostatic vital signs is positive with dizziness. The patient denies chest pain, shortness of breath, abdominal pain, or other acute symptoms. The patient reports recently seen by her Cardiology for routine follow-up. Past Medical History CAD with hx of mi Hypertension Depression Past Surgical History PTCA Bilateral tubal ligation Cholecystectomy Family History Reviewed, non-contributory to the management of this case. Past Social History The patient lives at home, denies smoking, alcohol or illicit drugs abuse. Review of Systems Constitutional: Yes: Malaise; No: Fever, Chills, Sweats, Weakness, Other Eyes: No: Pain, Vision change, Conjunctivae inflammation, Eyelid inflammation, Other, Redness ENT: No: Ear pain, Ear discharge, Nose pain, Nose discharge, Nose congestion, Mouth pain, Mouth swelling, Throat pain, Throat swelling, Other Respiratory: No: Cough, Dry, Shortness of breath, SOB with excertion, Wheezing, Hemoptysis, Pleuritic Pain, Sputum, Wheezing, Other Cardiovascular: No: Chest Pain, Palpitations, Orthopnea, Paroxysmal Noc. Dyspnea, Edema, Lt Headedness, Other Gastrointestinal: No: Nausea, Vomiting, Abdominal Pain, Diarrhea, Constipation, Melena, Hematochezia, Other Genitourinary: No Dysuria, No Frequency, No Incontinence, No Hematuria, No Retention, No Other Musculoskeletal: No: other, neck pain, shoulder pain, arm pain, back pain, hand pain, leg pain, foot pain Skin: No: Rash, Lesions, Jaundice, Bruising, Other Neurological: Other (Dizziness); No: Weakness, Numbness, Incoordination, Change in speech, Confusion, Seizures Allergies: Coded Allergies: Amoxicillin (Verified Allergy, Unknown, 06/22/16) Azithromycin (Verified Allergy, Unknown, 06/22/16) Medications Current Medications Medications Dose Ordered Sig/Yelena Route Start Time Stop Time Status Last Admin Dose Admin Aspirin 81 mg DAILY PO 06/07/24 10:00 Atorvastatin Calcium 40 mg HS PO 06/06/24 22:00 Clopidogrel Bisulfate 75 mg DAILY PO 06/07/24 10:00 Patient Own Medication 1 cap DAILY PO 06/07/24 10:00 UNV Exam Vital Signs Vital Signs Date Time Temp Pulse Resp B/P (MAP) Pulse Ox O2 Delivery O2 Flow Rate FiO2 06/06/24 18:00 98.1 94 22 114/59 (77) 94 98.1 06/06/24 17:01 Room Air* 0 21 General Appearance: Alert, Oriented X3, Cooperative, mild distress HEENT: Atraumatic, PERRLA, EOMI, Mucous membr. moist/pink Respiratory: Clear to auscultation, Normal air movement Cardiovascular: Regular rate, Normal S1, Normal S2, No murmurs Abdominal: Normal bowel sounds, Soft, No tenderness Extremities: No clubbing, No cyanosis, No edema, Normal pulses Skin: No rashes, No breakdown, No significant lesion Neuro: Normal gait, Sensation intact Psych/Mental Status: Mental status NL Labs/Xrays Labs Test 06/06/24 15:46 06/06/24 14:45 06/06/24 12:49 Range/Units Troponin I High Sensitivity < 3 L </=34 ng/L Urine Color Light-yellow Yellow Urine Clarity Hazy H Clear Urine pH 7.0 5.0-9.0 Urine Specific [place] 1.023 1.001-1.035 Urine Protein Negative Negative Urine Ketones Negative Negative Urine Blood Negative Negative /uL Urine Nitrite Negative Negative Urine Bilirubin Negative Negative Urine Urobilinogen Normal Negative mg/dL Urine Leukocyte Esterase Negative Negative /uL Urine RBC <1 0 - 4 /hpf Urine WBC 1 0 - 5 /hpf Urine Squamous Epithelial Cells Few <5 /hpf Urine Amorphous Crystals Few None Seen /hpf Urine Bacteria Few H None Seen /hpf Urine Yeast (Budding) Moderate None Seen /hpf Urine Glucose Normal Normal mg/dL White Blood Count 5.6 4.4-10.8 10^3/uL Red Blood Count 5.08 4.0-5.20 10^6/uL Hemoglobin 15.1 12.2-16.2 g/dL Hematocrit 45.3 36.0-46.0 % Mean Corpuscular Volume 89.1 80.0-100.0 fL Mean Corpuscular Hemoglobin 29.6 28.0-32.0 pg Mean Corpuscular Hemoglobin Concent 33.2 32.0-36.0 g/dL Red Cell Distribution Width 14.9 H 11.8-14.3 % Platelet Count 282 140-450 10^3/uL Mean Platelet Volume 7.2 6.9-10.8 fL Neutrophils (%) (Auto) 40.1 37.0-80.0 % Lymphocytes (%) (Auto) 40.6 10.0-50.0 % Monocytes (%) (Auto) 15.1 H 0.0-12.0 % Eosinophils (%) (Auto) 3.5 0.0-7.0 % Basophils (%) (Auto) 0.7 0.0-2.0 % Neutrophils # (Auto) 2.3 1.6-8.6 10 ^3/uL Lymphocytes # (Auto) 2.3 0.4-5.4 10 ^3/uL Monocytes # (Auto) 0.9 0-1.3 10 ^3/uL Eosinophils # (Auto) 0.2 0-0.8 10 ^3/uL Basophils # (Auto) 0 0-0.2 10 ^3/uL Nucleated Red Blood Cells 0.0 % Sodium Level 141 136-145 mmol/L Potassium Level 4.1 3.5-5.1 mmol/L Chloride Level 110 H 98-107 mmol/L Carbon Dioxide Level 22 20-31 mmol/L Anion Gap 9 5-15 Blood Urea Nitrogen 14 9-23 mg/dL Creatinine 0.88 0.550-1.02 mg/dL Glomerular Filtration Rate Calc 72 >90 mL/min BUN/Creatinine Ratio 15.9 10.0-20.0 Serum Glucose 115 H 74-106 mg/dL Calcium Level 9.7 8.7-10.4 mg/dL PROCEDURE(s): HWOCT - HEAD WITHOUT CONTRAST REASON: dizziness ORDER NUMBER(s): [id number], ACCESSION NUMBER(s): [id number] EXAM: CT HEAD WITHOUT CONTRAST INDICATION: dizziness TECHNIQUE: CT of the head without intravenous contrast. Radiation Dose : 1. Head: CT Dose: CTDI volume is 55.7 mGy. Dose-length product is 986.32 mGy*cm The dose indicators for CT are the volume Computed Tomography (CT) Dose Index (CTDIvol) and the Dose Length Product (DLP), and are measured in units of mGy and mGy-cm, respectively. These indicators are not patient dose, but values generated from the CT scanner acquisition factors. The report includes radiation exposure data for exposures received during this examination. COMPARISON: None FINDINGS: There is no evidence of acute intracranial hemorrhage, extra-axial collection, mass effect, midline shift, herniation or hydrocephalus. The ventricles, sulci and cisterns are age appropriate. The guerrero-white differentiation is intact. Patchy periventricular and subcortical white matter hypoattenuation is nonspecific but may be related to small vessel ischemic disease. The visualized paranasal sinuses and mastoid air cells are clear. The surrounding soft tissues and osseous structures are unremarkable. IMPRESSION: 1. No acute intracranial abnormality. 2. Chronic microvascular ischemic changes. Assessment/Plan Assessment/Plan # Dizziness and giddiness # orthostatic hypotension # rule out carotid stenosis # hx of Falls Admit to telemetry unit Orthostatic vital sign positive for orthostatic hypotension Carotid US pending High fall risk precautions # CAD with hx of [place] plavix, statins, aspirin # hypertension Metoprolol # depression Effexor, Topamax DVT prophylaxis Medical plan discussed with patient, family at the bedside Plan discussed with: Patient My Orders Orders - ESSENCE RACHEL Procedure Category Date Status Time Carotid Duplx W Color US 06/06/24 Logged DOP 18:20 Orthostatic Vital ORDERS 06/06/24 Transmitted Signs 18:20 Aspirin Tablet PHA 06/07/24 In Process 10:00 Atorvastatin (Lipitor) PHA 06/06/24 In Process 22:00 Clopidogrel Bisulfate PHA 06/07/24 In Process (Plavix) 10:00 (Nf) Venlafaxine PHA 06/07/24 Logged Hydrochloride (Effexor 10:00 Date of Service: Jun 06, 2024 Billing Provider: ESSENCE ARCHEL Common Visit Codes: [id number] INP/OBS CARE (HIGH) ESSENCE RACHEL Jun 06, 2024 18:39
[2024-06-06 19:20] VITALS: PULSE 97; RESP 13; O2SAT 93
--- NOTE | 2024-06-06 19:22 | DVH ---
Carotid Duplex Date: 06/06/2024 06:34 PM Clinical History: Dizziness Comparison: None Technique: Duplex Doppler evaluation of the extracranial carotid and vertebral arteries including color Doppler and spectral/pulsed waveform analysis was performed. Findings: RIGHT SIDE: The peak systolic velocities are 78 cm/s in the distal CCA and 90 cm/s in the proximal ICA.The ICA/CC A ratio is less than 2. The external carotid artery is patent with peak systolic velocity of 100 cm/s proximally. There is appropriate antegrade flow in the right vertebral artery. LEFT SIDE: The peak systolic velocities are 87 cm/s in the distal CCA and 125 cm/s in the mid ICA. The ICA/CCA ratio is less than 2. The external carotid artery is patent with peak systolic velocity of 83 cm/s proximally. There is appropriate antegrade flow in the left vertebral artery. IMPRESSION: Elevated velocity within the left mid ICA appears to be from tortuous vasculature with no significant plaque formation noted on the grayscale image (image 14). No hemodynamically significant stenosis of the right carotid arterial system based on peak systolic v elocities.
[2024-06-06 20:59] VITALS: BP 94/58; PULSE 95; RESP 20; TEMP 98.1; O2SAT 90
[2024-06-06 21:00] VITALS: RESP 16; O2SAT 95
[2024-06-06] MEDS ORDERED: ROSU10TA64 PO (21:09)
[2024-06-06] MEDS ORDERED: ALPR0.5T8 PO (21:09)
[2024-06-06] MEDS ORDERED: METO25TA93 PO (21:09)
[2024-06-06] MEDS ORDERED: TOPI50TA53 PO (21:09)
[2024-06-06] MEDS: TEMAZEPAM 15 MG CAP PO ONE (23:09)
[2024-06-06] MEDS: ATORVASTATIN 20 MG TAB PO SCH (23:10)
[2024-06-07 01:26] VITALS: BP 100/54; PULSE 97; RESP 19; TEMP 98.2; O2SAT 90
[2024-06-07 05:00] VITALS: BP 95/48; PULSE 87; RESP 17; TEMP 97.9; O2SAT 92
[2024-06-07 05:46] LABS: Basophils # (auto) 0 10 ^3/uL (0-0.2); Basophils % (auto) 0.6 % (0.0-2.0); Eosinophils # (auto) 0.2 10 ^3/uL (0-0.8); Eosinophils % (auto) 4.4 % (0.0-7.0); Lymphocytes # (auto) 2.4 10 ^3/uL (0.4-5.4); Lymphocytes % (auto) 44.8 % (10.0-50.0); Mean Corpuscular Hemoglobin 29.6 pg (28.0-32.0); Mean Corpuscular Hgb Conc. 33.2 g/dL (32.0-36.0); Monocytes # (auto) 0.7 10 ^3/uL (0-1.3); Monocytes % (auto) 13.8 % (0.0-12.0); Neutrophils # (auto) 1.9 10 ^3/uL (1.6-8.6); Neutrophils % (auto) 36.4 % (37.0-80.0); Nucleated Red Blood Cells % 0.1 %; Platelet Count (auto) 244 10^3/uL (140-450); Red Blood Cells 4.72 10^6/uL (4.0-5.20); Red Cell Distribution Width 15.1 % (11.8-14.3); White Blood Cell 5.3 10^3/uL (4.4-10.8)
[2024-06-07 06:07] LABS: Alanine Aminotransferase 27 U/L (7-40); Albumin 3.9 g/dL (3.2-4.8); Alkaline Phosphatase 78 U/L (46-116); Anion Gap 7 (5-15); Aspartate Aminotransferase 17 U/L (13-40); BUN/Creatinine Ratio 11.9 (10.0-20.0); Blood Urea Nitrogen 12 mg/dL (9-23); Calcium 9.5 mg/dL (8.7-10.4); Carbon Dioxide 24 mmol/L (20-31); Chloride 113 mmol/L (98-107); Glucose 104 mg/dL (74-106); Potassium 4.7 mmol/L (3.5-5.1); Sodium 144 mmol/L (136-145)
[2024-06-07 06:08] LABS: Bilirubin, Total 0.3 mg/dL (0.2-1.0); Total Protein 6.2 g/dL (5.7-8.2)
--- NOTE | 2024-06-07 06:37 | ECG ---
[facility] Test Date: 2024-06-06 Test Time: 12:42:05 Pat Name: CHERELLE HILL Department: ER Room: 0214T B Gender: F Converting Technician: PRASHANT : 1955 Requested By: EMERGENCY EMERGENCY Order Number: [id number] Reading MD: Rashid Tanner Measurements Intervals [place] Rate: 83 P: 29 ME: 162 QRS: 30 QRSD: 85 T: 15 QT: 432 QTc: 508 Interpretive Statements Sinus rhythm Low voltage, precordial leads Prolonged QT interval Electronically Signed On 06-11-2024 17:01:02 PST by Rashid Tanner Please click the below link to view image of tracing.
[2024-06-07 08:00] VITALS: PULSE 86
[2024-06-07 09:08] VITALS: BP 115/47; PULSE 84; RESP 16; TEMP 98.8; O2SAT 94
[2024-06-07] MEDS: METOPROLOL SUCCINATE XL 50 MG TAB PO SCH (10:00)
[2024-06-07] MEDS: VENLAFAXINE HCL 37.5mg XR cap PO SCH (10:58)
[2024-06-07] MEDS: CLOPIDOGREL BISULFATE 75 MG TAB PO SCH (11:00)
[2024-06-07] MEDS: ENOXAPARIN SOD 30 MG/0.3 ML SYRINGE SC SCH (11:01)
[2024-06-07] MEDS: ASPirin 81 mg TAB PO SCH (11:01)
[2024-06-07] MEDS: TOPIRAMATE 25 MG TAB PO SCH (11:01)
[2024-06-07] MEDS: MECLIZINE HCL 25 MG TAB PO PRN (12:21)
[2024-06-07 12:51] VITALS: BP 102/51; PULSE 90; RESP 16; TEMP 98.9; O2SAT 91
[2024-06-07] MEDS ORDERED: MECL1TAB42 PO (14:02)
[2024-06-07] MEDS ORDERED: CYAN100069 PO (14:02)
--- NOTE | 2024-06-07 14:07 | DVHDS2 ---
Discharge Summary Date of Admission Jun 06, 2024 at 18:24 Date of Discharge: Jun 07, 2024 Labs/Diagnostic Data: Laboratory Results Test 06/07/24 05:21 06/06/24 15:46 06/06/24 14:45 White Blood Count 5.3 10^3/uL (4.4-10.8) Red Blood Count 4.72 10^6/uL (4.0-5.20) Hemoglobin 14.0 g/dL (12.2-16.2) Hematocrit 42.0 % (36.0-46.0) Mean Corpuscular Volume 89.0 fL (80.0-100.0) Mean Corpuscular Hemoglobin 29.6 pg (28.0-32.0) Mean Corpuscular Hemoglobin Concent 33.2 g/dL (32.0-36.0) Red Cell Distribution Width 15.1 % (11.8-14.3) Platelet Count 244 10^3/uL (140-450) Mean Platelet Volume 7.1 fL (6.9-10.8) Neutrophils (%) (Auto) 36.4 % (37.0-80.0) Lymphocytes (%) (Auto) 44.8 % (10.0-50.0) Monocytes (%) (Auto) 13.8 % (0.0-12.0) Eosinophils (%) (Auto) 4.4 % (0.0-7.0) Basophils (%) (Auto) 0.6 % (0.0-2.0) Neutrophils # (Auto) 1.9 10 ^3/uL (1.6-8.6) Lymphocytes # (Auto) 2.4 10 ^3/uL (0.4-5.4) Monocytes # (Auto) 0.7 10 ^3/uL (0-1.3) Eosinophils # (Auto) 0.2 10 ^3/uL (0-0.8) Basophils # (Auto) 0 10 ^3/uL (0-0.2) Nucleated Red Blood Cells 0.1 % Sodium Level 144 mmol/L (136-145) Potassium Level 4.7 mmol/L (3.5-5.1) Chloride Level 113 mmol/L (98-107) Carbon Dioxide Level 24 mmol/L (20-31) Anion Gap 7 (5-15) Blood Urea Nitrogen 12 mg/dL (9-23) Creatinine 1.01 mg/dL (0.550-1.02) Glomerular Filtration Rate Calc 61 mL/min (>90) BUN/Creatinine Ratio 11.9 (10.0-20.0) Serum Glucose 104 mg/dL (74-106) Hemoglobin A1c 6.2 % A1C (<5.7) Calcium Level 9.5 mg/dL (8.7-10.4) Total Bilirubin 0.3 mg/dL (0.2-1.0) Aspartate Amino Transferase (AST) 17 U/L (13-40) Alanine Aminotransferase (ALT) 27 U/L (7-40) Alkaline Phosphatase 78 U/L (46-116) Total Protein 6.2 g/dL (5.7-8.2) Albumin 3.9 g/dL (3.2-4.8) Vitamin B12 Level 218 pg/mL (211-911) Thyroid Stimulating Hormone (TSH) 2.51 uIU/mL (0.55-4.78) Troponin I High Sensitivity < 3 ng/L (</=34) Urine Color Light-yellow (Yellow) Urine Clarity Hazy (Clear) Urine pH 7.0 (5.0-9.0) Urine Specific [place] 1.023 (1.001-1.035) Urine Protein Negative (Negative) Urine Ketones Negative (Negative) Urine Blood Negative /uL (Negative) Urine Nitrite Negative (Negative) Urine Bilirubin Negative (Negative) Urine Urobilinogen Normal mg/dL (Negative) Urine Leukocyte Esterase Negative /uL (Negative) Urine RBC <1 /hpf (0 - 4) Urine WBC 1 /hpf (0 - 5) Urine Squamous Epithelial Cells Few /hpf (<5) Urine Amorphous Crystals Few /hpf (None Seen) Urine Bacteria Few /hpf (None Seen) Urine Yeast (Budding) Moderate /hpf (None Seen) Urine Glucose Normal mg/dL (Normal) Other Laboratory Tests 06/07/24 05:21 Brief Hx & Hospital Course: This 68-year-old female presents in the ED with a chief complaint of dizziness. The patient reports progressive dizziness for the past few months. The patient reports dizziness he starts when getting up. Patient reports she takes Coreg and Metoprolol at home. I've discontinued both medications. B12 is on the lower side. Will discharge patient with Meclizine and B12. See Dr. Cummings Wednesday 3:50PM. Condition at Discharge: Poor Final Diagnosis/Problems List Dizziness B12 Def. Hypotension Goals of care FULL CODE Discharge Disposition: Home Discharge Instruct/Medications Diet: Regular Activity: Light activity Follow Up/Referral: Dr. Cummings on Friday at 3:50PM. Medications: See [facility] Discharge Statement: "Patient was advised to return to the ER or call 911 if any headaches, dizziness, shortness of breath, chest pain, abdominal pain, bleeding, fevers, or worsening of medical condition. Patient was counseled about treatment plan, medications, possible side effects, patientverbalized understanding. All questions were answered to the best of my ability. This discharge took greater then 30 minutes in planning, reviewing documentation, counseling the patient, and discussing with other team members." ASSESSMENT ASSESSMENT Assessment Date of Service: Jun 07, 2024 Billing Provider: WALTER RAOMS MD Common Visit Codes: 30133-VQL/OBS DISCH DAY >30min Secondary Visit Codes: 62099-CZQUVTYY CARE PLAN 30 MINUTES WALTER RAMOS MD Jun 07, 2024 14:07
[2024-06-07] MEDS: CYANOCOBALAMIN (B-12) 1000 MCG/1 ML VIAL IM ONE (15:00)
[2024-06-07 16:45] VITALS: BP 102/51; PULSE 90; TEMP 37.2
== END 2024-06-07 17:00 | disposition home or self-care (01) | DRG 312 ==
LOC: ER 12:35 → TELE-CENTR 15:00 → TELE 18:24 → TELE-CENTR 20:40
PROVIDERS: ADMIT Registered Nurse; ATTEND Internal Medicine
DX: I95.1 Orthostatic hypotension (principal); I25.10 Atherosclerotic heart disease of native coronary artery without angina pectoris; I10 Essential (primary) hypertension; F32.A Depression, unspecified; F41.9 Anxiety disorder, unspecified; F17.200 Nicotine dependence, unspecified, uncomplicated; E53.8 Deficiency of other specified B group vitamins; I25.2 Old myocardial infarction; Z88.1 Allergy status to other antibiotic agents; Z88.0 Allergy status to penicillin; Z90.49 Acquired absence of other specified parts of digestive tract; Z98.61 Coronary angioplasty status
CPT/HCPCS: 36415; 70450; 71045; 80048; 80053; 81001; 82607; 83036; 84443; 84484; 85025; 93005; 93886; 99291; G0378

== ENCOUNTER → 2024-09-06 | Outpatient (CLI) | payer OTHER ==
[~2024-09-06] MED LIST changes: -CARV-214 PO; +CYAN100069 PO; +MECL1TAB42 PO; +ROSU10TA64 PO; -TICA90TA PO; +TOPI50TA53 PO
[2024-09-06 11:21] LABS: Basophils # (auto) 0 10 ^3/uL (0-0.2); Basophils % (auto) 0.7 % (0.0-2.0); Eosinophils # (auto) 0.1 10 ^3/uL (0-0.8); Eosinophils % (auto) 3.1 % (0.0-7.0); Hematocrit 44.2 % (36.0-46.0); Hemoglobin 14.7 g/dL (12.2-16.2); Lymphocytes # (auto) 1.8 10 ^3/uL (0.4-5.4); Lymphocytes % (auto) 37.9 % (10.0-50.0); Mean Corpuscular Hemoglobin 30.1 pg (28.0-32.0); Mean Corpuscular Hgb Conc. 33.2 g/dL (32.0-36.0); Mean Corpuscular Volume 90.8 fL (80.0-100.0); Monocytes # (auto) 0.5 10 ^3/uL (0-1.3); Monocytes % (auto) 11.2 % (0.0-12.0); Neutrophils # (auto) 2.2 10 ^3/uL (1.6-8.6); Neutrophils % (auto) 47.1 % (37.0-80.0); Nucleated Red Blood Cells % 0.2 %; Platelet Count (auto) 280 10^3/uL (140-450); Red Blood Cells 4.86 10^6/uL (4.0-5.20); Red Cell Distribution Width 13.5 % (11.8-14.3); White Blood Cell 4.7 10^3/uL (4.4-10.8)
[2024-09-06 12:35] LABS: BUN/Creatinine Ratio 13.8 (10.0-20.0)
[2024-09-06 12:38] LABS: Alanine Aminotransferase 23 U/L (7-40); Alkaline Phosphatase 79 U/L (46-116); Aspartate Aminotransferase 19 U/L (13-40); Blood Urea Nitrogen 13 mg/dL (9-23); Carbon Dioxide 22 mmol/L (20-31); Glucose 102 mg/dL (74-106)
[2024-09-06 12:39] LABS: Albumin 4.4 g/dL (3.2-4.8); Bilirubin, Total 0.4 mg/dL (0.2-1.0); Calcium 9.8 mg/dL (8.7-10.4); Total Protein 6.6 g/dL (5.7-8.2)
[2024-09-06 12:47] LABS: Anion Gap 12 (5-15); Chloride 108 mmol/L (98-107); Potassium 4.5 mmol/L (3.5-5.1); Sodium 142 mmol/L (136-145)
[2024-09-07 15:50] LABS: Cholesterol 304 mg/dL (< 200); Triglycerides 245 mg/dL (< 150)
[2024-09-07 15:51] LABS: HDL Cholesterol 59 mg/dL (40-59); LDL Cholesterol 219 mg/dL (< 100)
== END | disposition home or self-care (01) ==
LOC: LAB 10:13
PROVIDERS: ATTEND Nurse Practitioner Family
DX: Z00.01 Encounter for general adult medical examination with abnormal findings (principal); I13.0 Hypertensive heart and chronic kidney disease with heart failure and stage 1 through stage 4 chronic kidney disease, or unspecified chronic kidney disease; I50.9 Heart failure, unspecified; N18.9 Chronic kidney disease, unspecified; D51.0 Vitamin B12 deficiency anemia due to intrinsic factor deficiency
CPT/HCPCS: 36415; 80053; 80061; 82607; 84443; 85025

== ENCOUNTER 2025-04-22 09:52 | Day surgery (SDC) | payer OTHER ==
[2025-04-20 12:30] LABS: Hematocrit 43.0 % (36.0-46.0); Hemoglobin 15.1 g/dL (12.2-16.2); Mean Corpuscular Hemoglobin 31.8 pg (28.0-32.0); Mean Corpuscular Volume 90.8 fL (80.0-100.0); Nucleated Red Blood Cells % 0.1 %
[2025-04-20 12:47] LABS: INR 1.0 (0.9-1.15); Partial Thromboplastin Time 27.8 SEC (24.5-34.5); Prothrombin Time 10.6 sec (9.3-11.8)
[2025-04-20 13:02] LABS: Alanine Aminotransferase 32 U/L (7-40); Albumin 4.5 g/dL (3.2-4.8); Alkaline Phosphatase 74 U/L (46-116); Anion Gap 8 (5-15); BUN/Creatinine Ratio 12.4 (10.0-20.0); Bilirubin, Total 0.6 mg/dL (0.2-1.0); Blood Urea Nitrogen 12 mg/dL (9-23); Calcium 9.5 mg/dL (8.7-10.4); Carbon Dioxide 29 mmol/L (20-31); Chloride 102 mmol/L (98-107); Glucose 95 mg/dL (74-106); Potassium 4.5 mmol/L (3.5-5.1); Sodium 139 mmol/L (136-145); Total Protein 7.2 g/dL (5.7-8.2)
[~2025-04-22] VITALS: Ht 162.6 cm; Wt 72.6 kg
[~2025-04-22 09:52] MED LIST changes: +ASCO500T11 PO; -ATOR20TA50 PO; +MAGN400T40 PO; +METO25TA36 PO; -PANT40T PO; -TOPI50TA53 PO; -TURM1TAB PO
[2025-04-22] MEDS ORDERED: SODIUM CHLORIDE LOCK 10 ML ONE (10:10)
[2025-04-22 11:26] VITALS: PULSE 88; RESP 16
[2025-04-22] MEDS: LIDOCAINE VISCOUS 2% 15ML UD ONE (11:27)
[2025-04-22] MEDS: MIDAZOLAM HCL 5 MG/ML-1ML VIAL ONE (11:29)
[2025-04-22] MEDS: fentaNYL CITRATE 100 MCG/2 ML VL ONE (11:29)
[2025-04-22] MEDS: diphenhdrAMINE HCL 50 MG/1 ML VL ONE (11:29)
[2025-04-22 11:47] VITALS: PULSE 101; RESP 12; TEMP 97.2; O2SAT 91
--- NOTE | 2025-04-22 11:56 | DVHOP2 ---
Operative Report DATE OF OPERATION: 04/22/25 PROCEDURE: Upper Endoscopy with biopsy. PREOPERATIVE INDICATION: The patient is a 69 -year-old female undergoing endoscopy for evaluation of chronic GERD and a hiatal hernia POSTOPERATIVE DIAGNOSES: 1. Patient had a large 6-7 cm sliding-type hiatal hernia with paraesophageal component with grade a erosive esophagitis 2. Mild antral gastritis otherwise normal examination up to the duodenal bulb and postbulbar area PROCEDURE PERFORMED BY: Charisma Stoll GI NURSE: Estela SCOPE: Olympus videoendoscope. ASA CLASS: 3 PREOPERATIVE MEDICATIONS: Versed 5 mg, Fentanyl 100 mcg, Benadryl 50 mg I administered moderate sedation throughout this _10_ minutes procedure. An independent trained observer pushed medications at my direction, and monitored the patient's level of consciousness and physiological status throughout. PROCEDURE IN DETAIL: After obtaining an informed consent, the patient was placed on left lateral decubitus position. The patient was then sedated with the above medications. A bite block was placed between her teeth. The endoscope was then passed through the oropharynx, into the esophagus, and through the stomach and pylorus up to the second and third part of the duodenum. The endoscope was then withdrawn. I was unable to advance the endoscope beyond the postbulbar area because of moderate tortuosity within the hiatal hernia sac The duodenal bulb and postbulbar area were normal. Duodenal biopsies were obtained The pre-pyloric area and antrum showed mild gastritis. Gastric biopsies were obtained. On retroflexion a hiatal hernia was noted. The endoscope was then withdrawn into distal esophagus. Patient had a diaphragmatic hernia large 6-7 cm with a paraesophageal component making it difficult to advance the endoscope through this area Patient had a slightly irregular squamocolumnar junction at about 35 cm from the mouth and GE junction biopsies were obtained. The remaining distal and proximal esophagus and oropharynx were unremarkable. COMPLICATIONS : None SPECIMENS: Gastric biopsies Duodenal biopsies DISPOSITION: Stable D/C to home PLAN: 1. Await for biopsy result 2. Will place pt on Protonix 40 mg bid 3. Lifestyle and dietary modifications for GERD 4. Resume GI soft diet advance as tolerated 5. Outpatient follow up with me in 4-6 weeks to review results and discuss further management including the possibility of Donn fundoplication CHARISMA STOLL MD Apr 22, 2025 11:56
[2025-04-22 12:00] VITALS: PULSE 102; RESP 18; O2SAT 95
[2025-04-22 12:10] VITALS: BP 131/57; PULSE 78; RESP 20; O2SAT 94
== END 2025-04-22 12:20 | disposition home or self-care (01) ==
LOC: GI 09:52
PROVIDERS: ATTEND Internal Medicine Gastroenterology
DX: K21.9 Gastro-esophageal reflux disease without esophagitis (principal); K44.9 Diaphragmatic hernia without obstruction or gangrene; K29.80 Duodenitis without bleeding; K29.50 Unspecified chronic gastritis without bleeding; K22.70 Barrett's esophagus without dysplasia; I10 Essential (primary) hypertension; E78.00 Pure hypercholesterolemia, unspecified; G43.909 Migraine, unspecified, not intractable, without status migrainosus; F41.9 Anxiety disorder, unspecified; Z98.890 Other specified postprocedural states; Z79.899 Other long term (current) drug therapy
CPT/HCPCS: 36415; 43239; 80053; 85025; 85610; 85730; 88305; 88342; J1200; J2250; J3010; J7030